=== PATIENT | male | born 1930 | race Caucasian/White ===

== ENCOUNTER 2020-10-08 10:45 | Inpatient (IN) ==
[2020-10-08] MEDS ORDERED: *HR* FentaNYL (PF) 100 MCG/2 ML VIAL IVP ONE (11:13)
[2020-10-08 12:31] LABS: Basophils # 0.1 K/mcL (0.0-0.2); Basophils % 0.3 %; Hematocrit 45.5 % (37.5-50.1); Hemoglobin 15.8 g/dL (12.9-16.9); Immature Granulocytes % 1.4 % (0-4); Lymphocytes # 0.6 K/mcL (0.6-4.6); Lymphocytes % 3.8 %; Mean Corpuscular HGB Conc 34.7 g/dL (31.6-35.5); Mean Corpuscular Hemoglobin 29.8 pg (28.0-33.3); Mean Corpuscular Volume 85.7 fL (83.0-100.0); Mean Platelet Volume 8.4 fL (9.4-12.4); Monocytes # 1.2 K/mcL (0.0-1.3); Monocytes % 8.6 %; Neutrophils # 12.3 K/mcL (1.6-8.9); Platelet Count 335 K/mcL (140-400); Red Blood Count 5.31 M/mcL (4.19-5.50); Red Cell Distribution Width 13.7 % (11.5-14.5); Segmented Neutrophils % 85.9 %; White Blood Count 14.4 K/mcL (4.3-11.1)
[2020-10-08 12:40] LABS: Activated Partial Thrombo Time 24.4 Seconds (26.0-36.0)
[2020-10-08 12:53] LABS: BUN/Creatinine Ratio 31 (6-26); Blood Urea Nitrogen 25 mg/dL (8-23); Calcium 8.5 mg/dL (8.6-10.3); Carbon Dioxide 23 mEq/L (23-29); Chloride 90 mEq/L (98-107); Glucose 98 mg/dL (70-105); Osmolality,Calculated 260 (280-300); Potassium 4.7 mEq/L (3.5-5.1); Sodium 123 mEq/L (136-145); Troponin I < 0.03 ng/mL (< 0.04); eGFR For African Americans > 60 (> 60); eGFR For Non-African Americans > 60 (> 60)
[2020-10-08] MEDS ORDERED: Furosemide 40 MG/4 ML VIAL IVP ONE (13:58)
[2020-10-08] MEDS ORDERED: Naloxone 0.4 MG/ML INJ IVP PRN (14:01)
[2020-10-08] MEDS ORDERED: Ondansetron 4 MG/2 ML VIAL IVP PRN (14:01)
[2020-10-08] MEDS ORDERED: *HR* Heparin 5,000 UNIT/ML VIAL IVP ONE (14:01)
[2020-10-08] MEDS ORDERED: *HR* Heparin 5,000 UNIT/ML VIAL IVP PRN ×2 (14:01)
[2020-10-08] MEDS ORDERED: *HR* Metoprolol 5 MG/5 ML VIAL IVP PRN (14:03)
[2020-10-08 14:47] LABS: Heparin anti-factor XA UFH 0.04 IU/mL (0.30-0.70); Prothrombin Time 11.9 Seconds (9.4-12.1)
[2020-10-08 15:00] LABS: Hematocrit 44.6 % (37.5-50.1); Hemoglobin 15.4 g/dL (12.9-16.9); Mean Corpuscular HGB Conc 34.5 g/dL (31.6-35.5); Mean Corpuscular Hemoglobin 30.3 pg (28.0-33.3); Mean Corpuscular Volume 87.6 fL (83.0-100.0); Mean Platelet Volume 8.3 fL (9.4-12.4); Platelet Count 347 K/mcL (140-400); Red Blood Count 5.09 M/mcL (4.19-5.50); Red Cell Distribution Width 13.6 % (11.5-14.5); White Blood Count 16.2 K/mcL (4.3-11.1)
[2020-10-08 15:15] LABS: Phosphorous 3.3 mg/dL (2.7-4.5)
[2020-10-08 15:28] LABS: Thyroid Stimulating Hormone 2.069 mcIU/mL (0.340-5.600)
[2020-10-08] MEDS ORDERED: Metoprolol XL (24 HR) Succ 25 MG TAB.ER.24H PO SCH (16:00)
[2020-10-08] MEDS: Heparin 25,000UNIT/250ML 1/2NS 25,000 UNIT/250 ML IV.SOLN IVC SCH (16:33)
[2020-10-08] MEDS ORDERED: Fluticasone Propionate Nasal 50 MCG/SPRAY BOTTLE NS PRN (21:23)
[2020-10-09 00:29] LABS: Basophils # 0.1 K/mcL (0.0-0.2); Basophils % 0.4 %; Eosinophils % 0.2 %; Hematocrit 43.5 % (37.5-50.1); Hemoglobin 15.3 g/dL (12.9-16.9); Immature Granulocytes % 1.8 % (0-4); Lymphocytes # 0.8 K/mcL (0.6-4.6); Mean Corpuscular HGB Conc 35.2 g/dL (31.6-35.5); Mean Corpuscular Hemoglobin 29.9 pg (28.0-33.3); Mean Corpuscular Volume 85.1 fL (83.0-100.0); Mean Platelet Volume 8.3 fL (9.4-12.4); Monocytes # 0.9 K/mcL (0.0-1.3); Monocytes % 7.1 %; Platelet Count 344 K/mcL (140-400); Red Blood Count 5.11 M/mcL (4.19-5.50); Red Cell Distribution Width 13.5 % (11.5-14.5); Segmented Neutrophils % 84.5 %; White Blood Count 12.9 K/mcL (4.3-11.1)
[2020-10-09 01:34] LABS: BUN/Creatinine Ratio 30 (6-26); Blood Urea Nitrogen 25 mg/dL (8-23); Calcium 8.2 mg/dL (8.6-10.3); Carbon Dioxide 22 mEq/L (23-29); Chloride 90 mEq/L (98-107); Glucose 95 mg/dL (70-105); Magnesium 2.3 mg/dL (1.6-2.6); Osmolality,Calculated 262 (280-300); Phosphorous 3.5 mg/dL (2.7-4.5); Potassium 4.3 mEq/L (3.5-5.1); Sodium 124 mEq/L (136-145); eGFR For African Americans > 60 (> 60); eGFR For Non-African Americans > 60 (> 60)
[2020-10-09] MEDS ORDERED: DilTIAZem 50 MG in 0.9 % Sodium Chloride 40 ML IVC SCH (07:15)
[2020-10-09] MEDS: Aspirin Enteric Coated 81 MG Tablet PO SCH (07:48)
[2020-10-09] MEDS: *HR* OxyCODONE Immed Rel 5 MG TABLET PO PRN (07:48)
[2020-10-09] MEDS: Metoprolol XL (24 HR) Succ 25 MG TAB.ER.24H PO SCH ×2 (07:51→20:56)
[2020-10-09] MEDS ORDERED: Perflutren Lipid Microsphere 1.3 ML in 0.9 % Sodium Chloride 8.7 ML IVP PRN (10:46)
[2020-10-09] MEDS ORDERED: Metoprolol XL (24 HR) Succ 50 MG TAB.ER.24H PO ONE (15:01)
[2020-10-09] MEDS: Heparin 25,000UNIT/250ML 1/2NS 25,000 UNIT/250 ML IV.SOLN IVC SCH ×2 (15:34→20:47)
[2020-10-09] MEDS ORDERED: *HR* Heparin 5,000 UNIT/ML VIAL IVP PRN ×2 (18:26)
[2020-10-09] MEDS ORDERED: Apixaban 5 MG TABLET PO SCH (21:00)
[2020-10-10 03:07] LABS: Basophils # 0.1 K/mcL (0.0-0.2); Basophils % 0.5 %; Eosinophils % 0.3 %; Hematocrit 39.9 % (37.5-50.1); Immature Granulocytes % 1.8 % (0-4); Lymphocytes # 0.6 K/mcL (0.6-4.6); Lymphocytes % 5.3 %; Mean Corpuscular HGB Conc 34.3 g/dL (31.6-35.5); Mean Corpuscular Hemoglobin 29.5 pg (28.0-33.3); Mean Corpuscular Volume 85.8 fL (83.0-100.0); Mean Platelet Volume 8.3 fL (9.4-12.4); Monocytes % 8.4 %; Platelet Count 292 K/mcL (140-400); Red Blood Count 4.65 M/mcL (4.19-5.50); Red Cell Distribution Width 13.6 % (11.5-14.5); Segmented Neutrophils % 83.7 %; White Blood Count 11.9 K/mcL (4.3-11.1)
[2020-10-10 03:13] LABS: Hemoglobin 13.7 g/dL (12.9-16.9)
[2020-10-10 03:29] LABS: BUN/Creatinine Ratio 38 (6-26); Blood Urea Nitrogen 25 mg/dL (8-23); Calcium 7.9 mg/dL (8.6-10.3); Carbon Dioxide 23 mEq/L (23-29); Chloride 94 mEq/L (98-107); Glucose 101 mg/dL (70-105); Osmolality,Calculated 263 (280-300); Potassium 4.2 mEq/L (3.5-5.1); Sodium 124 mEq/L (136-145); eGFR For African Americans > 60 (> 60); eGFR For Non-African Americans > 60 (> 60)
[2020-10-10] MEDS: Metoprolol XL (24 HR) Succ 25 MG TAB.ER.24H PO SCH ×2 (08:06→20:04)
[2020-10-10] MEDS: Aspirin Enteric Coated 81 MG Tablet PO SCH (08:06)
[2020-10-10] MEDS: *HR* OxyCODONE Immed Rel 5 MG TABLET PO PRN ×3 (08:06→21:14)
[2020-10-10 15:01] LABS: INR 1.1; Prothrombin Time 13.2 Seconds (9.4-12.1)
[2020-10-10] MEDS: Methyl Salicylate/Menthol 57 APPL/57 GM TUBE TP PRN (16:29)
[2020-10-10] MEDS ORDERED: *HR* Warfarin 2.5 MG TABLET PO ONE (18:00)
[2020-10-10] MEDS ORDERED: Warfarin perPT PO PRN (18:00)
[2020-10-11 01:16] LABS: Basophils # 0.1 K/mcL (0.0-0.2); Basophils % 0.4 %; Eosinophils # 0.1 K/mcL (0.0-0.6); Eosinophils % 0.4 %; Hematocrit 41.4 % (37.5-50.1); Hemoglobin 14.1 g/dL (12.9-16.9); Immature Granulocytes % 2.2 % (0-4); Lymphocytes # 0.9 K/mcL (0.6-4.6); Lymphocytes % 6.8 %; Mean Corpuscular HGB Conc 34.1 g/dL (31.6-35.5); Mean Corpuscular Hemoglobin 29.9 pg (28.0-33.3); Mean Corpuscular Volume 87.7 fL (83.0-100.0); Mean Platelet Volume 8.6 fL (9.4-12.4); Monocytes # 1.1 K/mcL (0.0-1.3); Monocytes % 7.8 %; Neutrophils # 11.2 K/mcL (1.6-8.9); Platelet Count 340 K/mcL (140-400); Red Blood Count 4.72 M/mcL (4.19-5.50); Red Cell Distribution Width 13.6 % (11.5-14.5); Segmented Neutrophils % 82.4 %; White Blood Count 13.6 K/mcL (4.3-11.1)
[2020-10-11 01:27] LABS: INR 1.1; Prothrombin Time 12.3 Seconds (9.4-12.1)
[2020-10-11 01:38] LABS: BUN/Creatinine Ratio 30 (6-26); Blood Urea Nitrogen 21 mg/dL (8-23); Calcium 8.5 mg/dL (8.6-10.3); Carbon Dioxide 25 mEq/L (23-29); Chloride 93 mEq/L (98-107); Glucose 101 mg/dL (70-105); Magnesium 2.1 mg/dL (1.6-2.6); Osmolality,Calculated 263 (280-300); Potassium 4.3 mEq/L (3.5-5.1); Sodium 125 mEq/L (136-145); eGFR For African Americans > 60 (> 60); eGFR For Non-African Americans > 60 (> 60)
[2020-10-11] MEDS: *HR* OxyCODONE Immed Rel 5 MG TABLET PO PRN ×4 (05:00→21:48)
[2020-10-11] MEDS: Heparin 25,000UNIT/250ML 1/2NS 25,000 UNIT/250 ML IV.SOLN IVC SCH (07:00)
[2020-10-11] MEDS: Metoprolol XL (24 HR) Succ 25 MG TAB.ER.24H PO SCH ×2 (09:46→20:38)
[2020-10-11] MEDS: lisinopriL 20 MG TABLET PO SCH (09:46)
[2020-10-11] MEDS: Aspirin Enteric Coated 81 MG Tablet PO SCH (09:46)
[2020-10-11] MEDS ORDERED: *HR* Warfarin 2.5 MG TABLET PO ONE (18:00)
[2020-10-12 00:11] LABS: Heparin anti-factor XA UFH < 0.04 IU/mL (0.30-0.70)
[2020-10-12 00:31] LABS: INR 1.1; Prothrombin Time 13.1 Seconds (9.4-12.1)
[2020-10-12] MEDS: Metoprolol XL (24 HR) Succ 25 MG TAB.ER.24H PO SCH (08:42)
[2020-10-12] MEDS: *HR* OxyCODONE Immed Rel 5 MG TABLET PO PRN ×3 (08:42→22:57)
[2020-10-12] MEDS: Aspirin Enteric Coated 81 MG Tablet PO SCH (08:42)
[2020-10-12] MEDS: lisinopriL 20 MG TABLET PO SCH (08:42)
[2020-10-12] MEDS: Sennosides/Docusate Sodium TABLET PO PRN (08:43)
[2020-10-12] MEDS: Methyl Salicylate/Menthol 57 APPL/57 GM TUBE TP PRN (08:44)
[2020-10-12] MEDS: polyethylene glycoL 3350 17 GM POWD.PACK PO PRN (16:02)
[2020-10-12] MEDS: *HR* Heparin 5,000 UNIT/ML VIAL SQ SCH (18:35)
[2020-10-12] MEDS: Gabapentin 300 MG CAPSULE PO SCH (20:08)
[2020-10-12] MEDS: Metoprolol XL (24 HR) Succ 50 MG TAB.ER.24H PO SCH (20:09)
[2020-10-12] MEDS ORDERED: Metoprolol XL (24 HR) Succ 25 MG TAB.ER.24H PO SCH (21:00)
[2020-10-13 03:49] LABS: Basophils % 0.3 %; Eosinophils # 0.2 K/mcL (0.0-0.6); Eosinophils % 1.4 %; Hematocrit 40.5 % (37.5-50.1); Hemoglobin 13.8 g/dL (12.9-16.9); Immature Granulocytes % 1.8 % (0-4); Lymphocytes % 7.6 %; Mean Corpuscular HGB Conc 34.1 g/dL (31.6-35.5); Mean Corpuscular Hemoglobin 29.2 pg (28.0-33.3); Mean Corpuscular Volume 85.8 fL (83.0-100.0); Mean Platelet Volume 8.5 fL (9.4-12.4); Monocytes # 0.9 K/mcL (0.0-1.3); Monocytes % 7.1 %; Neutrophils # 10.7 K/mcL (1.6-8.9); Platelet Count 319 K/mcL (140-400); Red Blood Count 4.72 M/mcL (4.19-5.50); Red Cell Distribution Width 13.6 % (11.5-14.5); Segmented Neutrophils % 81.8 %
[2020-10-13 03:55] LABS: INR 1.1; Prothrombin Time 13.1 Seconds (9.4-12.1)
[2020-10-13 04:10] LABS: BUN/Creatinine Ratio 25 (6-26); Blood Urea Nitrogen 15 mg/dL (8-23); Calcium 8.1 mg/dL (8.6-10.3); Carbon Dioxide 22 mEq/L (23-29); Chloride 94 mEq/L (98-107); Glucose 97 mg/dL (70-105); Osmolality,Calculated 257 (280-300); Phosphorous 3.6 mg/dL (2.7-4.5); Sodium 123 mEq/L (136-145); eGFR For African Americans > 60 (> 60); eGFR For Non-African Americans > 60 (> 60)
[2020-10-13] MEDS: *HR* Heparin 5,000 UNIT/ML VIAL SQ SCH ×2 (05:56→17:04)
[2020-10-13] MEDS: Metoprolol XL (24 HR) Succ 50 MG TAB.ER.24H PO SCH ×2 (09:14→19:58)
[2020-10-13] MEDS: Gabapentin 300 MG CAPSULE PO SCH ×2 (09:15→19:58)
[2020-10-13] MEDS: Aspirin Enteric Coated 81 MG Tablet PO SCH (09:15)
[2020-10-13] MEDS: lisinopriL 20 MG TABLET PO SCH (09:16)
[2020-10-13] MEDS: *HR* OxyCODONE Immed Rel 5 MG TABLET PO PRN ×3 (09:20→23:13)
[2020-10-14] MEDS: *HR* Heparin 5,000 UNIT/ML VIAL SQ SCH ×2 (05:31→18:05)
[2020-10-14 07:17] LABS: INR 1.1; Prothrombin Time 12.6 Seconds (9.4-12.1)
[2020-10-14] MEDS: Sennosides/Docusate Sodium TABLET PO PRN (08:17)
[2020-10-14] MEDS: Aspirin Enteric Coated 81 MG Tablet PO SCH (08:17)
[2020-10-14] MEDS: Metoprolol XL (24 HR) Succ 50 MG TAB.ER.24H PO SCH ×2 (08:17→21:42)
[2020-10-14] MEDS: *HR* OxyCODONE Immed Rel 5 MG TABLET PO PRN ×2 (08:17→18:05)
[2020-10-14] MEDS: Gabapentin 300 MG CAPSULE PO SCH ×2 (08:18→21:54)
[2020-10-14] MEDS: lisinopriL 20 MG TABLET PO SCH (08:18)
[2020-10-15] MEDS: *HR* Heparin 5,000 UNIT/ML VIAL SQ SCH ×2 (04:56→18:24)
[2020-10-15] MEDS: Metoprolol XL (24 HR) Succ 50 MG TAB.ER.24H PO SCH ×2 (08:22→19:49)
[2020-10-15] MEDS: *HR* OxyCODONE Immed Rel 5 MG TABLET PO PRN ×2 (08:22→15:14)
[2020-10-15] MEDS: lisinopriL 20 MG TABLET PO SCH (08:22)
[2020-10-15] MEDS: Gabapentin 300 MG CAPSULE PO SCH ×2 (08:23→19:50)
[2020-10-15] MEDS: polyethylene glycoL 3350 17 GM POWD.PACK PO PRN (08:23)
[2020-10-15] MEDS: Sennosides/Docusate Sodium TABLET PO PRN (08:23)
[2020-10-15] MEDS: Aspirin Enteric Coated 81 MG Tablet PO SCH (08:23)
[2020-10-15 08:57] LABS: BUN/Creatinine Ratio 25 (6-26); Blood Urea Nitrogen 19 mg/dL (8-23); Calcium 8.4 mg/dL (8.6-10.3); Carbon Dioxide 23 mEq/L (23-29); Chloride 94 mEq/L (98-107); Glucose 101 mg/dL (70-105); Magnesium 2.1 mg/dL (1.6-2.6); Osmolality,Calculated 262 (280-300); Potassium 5.2 mEq/L (3.5-5.1); Sodium 125 mEq/L (136-145); eGFR For African Americans > 60 (> 60); eGFR For Non-African Americans > 60 (> 60)
[2020-10-16 02:51] LABS: Basophils % 0.2 %; Eosinophils % 0.3 %; Hematocrit 39.6 % (37.5-50.1); Hemoglobin 13.6 g/dL (12.9-16.9); Immature Granulocytes % 1.3 % (0-4); Lymphocytes # 0.7 K/mcL (0.6-4.6); Lymphocytes % 5.7 %; Mean Corpuscular HGB Conc 34.3 g/dL (31.6-35.5); Mean Corpuscular Hemoglobin 29.8 pg (28.0-33.3); Mean Corpuscular Volume 86.8 fL (83.0-100.0); Mean Platelet Volume 8.3 fL (9.4-12.4); Monocytes # 0.8 K/mcL (0.0-1.3); Monocytes % 6.5 %; Neutrophils # 11.1 K/mcL (1.6-8.9); Platelet Count 311 K/mcL (140-400); Red Blood Count 4.56 M/mcL (4.19-5.50); Red Cell Distribution Width 13.9 % (11.5-14.5); White Blood Count 12.9 K/mcL (4.3-11.1)
[2020-10-16 03:10] LABS: BUN/Creatinine Ratio 26 (6-26); Blood Urea Nitrogen 21 mg/dL (8-23); Calcium 8.1 mg/dL (8.6-10.3); Carbon Dioxide 22 mEq/L (23-29); Chloride 96 mEq/L (98-107); Glucose 101 mg/dL (70-105); Magnesium 2.1 mg/dL (1.6-2.6); Osmolality,Calculated 263 (280-300); Phosphorous 4.1 mg/dL (2.7-4.5); Potassium 5.1 mEq/L (3.5-5.1); Sodium 125 mEq/L (136-145); eGFR For African Americans > 60 (> 60); eGFR For Non-African Americans > 60 (> 60)
[2020-10-16] MEDS: *HR* Heparin 5,000 UNIT/ML VIAL SQ SCH ×2 (05:12→17:33)
[2020-10-16] MEDS: *HR* OxyCODONE Immed Rel 5 MG TABLET PO PRN ×3 (05:12→18:20)
[2020-10-16] MEDS ORDERED: lisinopriL 10 MG TABLET PO SCH (09:00)
[2020-10-16] MEDS: Aspirin Enteric Coated 81 MG Tablet PO SCH (10:30)
[2020-10-16] MEDS: Gabapentin 300 MG CAPSULE PO SCH (10:30)
[2020-10-16] MEDS: Metoprolol XL (24 HR) Succ 50 MG TAB.ER.24H PO SCH (10:30)
[2020-10-16 16:41] VITALS: BP 119/69
[2020-10-16 17:11] LABS: Adenovirus Not Detected (Not Detect); Bordetella Pertussis Not Detected (Not Detect); Chlamydophila pneumoniae Not Detected (Not Detect); Coronavirus 229E Not Detected (Not Detect); Coronavirus HKU1 Not Detected (Not Detect); Coronavirus NL63 Not Detected (Not Detect); Coronavirus OC43 Not Detected (Not Detect); Human Metapneumovirus Not Detected (Not Detect); Human Rhinovirus/Enterovirus Not Detected (Not Detect); Influenza A Subtype 2009 H1 Not Detected (Not Detect); Influenza B Not Detected (Not Detect); Mycoplasma pneumoniae Not Detected (Not Detect); Parainfluenza Virus 1 Not Detected (Not Detect); Parainfluenza Virus 2 Not Detected (Not Detect); Parainfluenza Virus 3 Not Detected (Not Detect); Parainfluenza Virus 4 Not Detected (Not Detect); Respiratory Syncytial Virus Not Detected (Not Detect); SARS-CoV-2 Not Detected (Not Detect)
[2020-10-16] MEDS ORDERED: Metoprolol XL (24 HR) Succ 50 MG TAB.ER.24H PO SCH (21:00)
== END 2020-10-16 18:55 | DRG 543 ==
LOC: EMEROOARM 10:45 → 2ANU 10:45 → SUATTDRO 13:56 → 2ANU 14:26 → SUATTDRO 10-09 15:06
PROVIDERS: ADMIT Internal Medicine; ATTEND Internal Medicine